=== PATIENT | male | born 1970 | race Caucasian/White ===

== ENCOUNTER 2020-12-14 12:50 | Emergency (ER) | payer BC, SELFPAY ==
[2020-12-14 12:51] VITALS: BMI 27.8
[2020-12-14 13:03] VITALS: PULSE 82; RESP 16; O2SAT 98; BMI 27.8
--- NOTE | 2020-12-14 13:53 | XR_ITS ---
PROCEDURE INFORMATION: Exam: XR Right Ankle Exam date and time: 12/14/2020 1:53 PM Age: 50 years old Clinical indication: Pain; Ankle; Right; Additional info: Right ankle injury TECHNIQUE: Imaging protocol: XR Right ankle. Views: 3 or more views. COMPARISON: No relevant prior studies available. FINDINGS: Bones/joints: No acute fracture or dislocation. Soft tissues: Lateral soft tissue swelling. IMPRESSION: 1. Lateral soft tissue swelling. 2. No acute fracture or dislocation.
--- NOTE | 2020-12-14 14:04 | XR_ITS ---
PROCEDURE INFORMATION: Exam: XR Right Foot Exam date and time: 12/14/2020 2:04 PM Age: 50 years old Clinical indication: Pain; Foot; Right TECHNIQUE: Imaging protocol: XR Right foot. Views: 3 or more views. COMPARISON: No relevant prior studies available. FINDINGS: Bones/joints: Fragmented metal pieces evident within the soft tissues between the 3rd and 4th metatarsal heads. No acute fracture or dislocation. Soft tissues: Normal. IMPRESSION: 1. Fragmented metal pieces evident within the soft tissues between the 3rd and 4th metatarsal heads. 2. No acute fracture or dislocation.
[2020-12-14 14:09] VITALS: BP 167/71; PULSE 71; RESP 18; TEMP 36.7; O2SAT 97; BMI 28.2
--- NOTE | 2020-12-14 14:23 | HMH.EDUTC ---
[facility] [place]: Right ankle sprain Qualifiers: Encounter type: initial encounter Involved ligament of ankle: anterior talofibular ligament Qualified Code(s): S93.491A - Sprain of other ligament of right ankle, initial encounter Disposition: Home, Self-Care Condition on Discharge: Good Instructions: DI for Ankle Sprain Additional Instructions: Rest, ice, elevation and wear walking boot Followup with PCP if not improving Prescriptions: Naproxen [Naproxen 500mg tab] 500 mg PO BID 10 Days #20 tab Transmission Status: Pending to [facility] #[id number] Referrals: Provider,Referral, [Primary Care Provider] - Time of Disposition: 14:31 Medical Decision Making - Sina Inquiry Pt receiving controlled substance: No Vital Signs: 12/14/20 13:03 12/14/20 14:09 Temperature 98.1 F Temperature Source Oral Pulse Rate [Left Radial] 82 71 Respiratory Rate 16 18 Blood Pressure [Right Arm] 167/71 H Blood Pressure Mean [Right Arm] 103 02 Sat by Pulse Oximetry 98 97 Oxygen Delivery Method Room Air Orders (Tests/Meds): ED MEDICATIONS Generic Name Dose Route Start Last Admin Trade Name Freq PRN Reason Stop Dose Admin Ondansetron HCl 4 mg 12/14/20 14:05 Ondansetron 4mg Odt PO 01/13/21 14:04 Q8HP PRN Nausea ORDERS Category Date Time Status Ankle XR -Right minimum 3 Views [XR ankle RT min 3V] Exams 12/14/20 13:53 Taken Stat Foot XR right minimum 3 views [XR foot RT min 3V] Stat Exams 12/14/20 14:04 Taken - Radiology Data #1 Image(s): Ankle, Foot/Toes Image Reviewed: Yes I reviewed the patient's radiology image Preliminary Findings: Normal/NAD, No Fracture Seen [facility] [place] - General Stated complaint: [id number] right ankle pain Time Seen by Provider: 12/14/20 14:24 Mode of Arrival: Family Vehicle Source of Information: Patient Limitations: No Limitations Description of Symptoms (Recalled from Triage Doc. by RN): Patient c/o right ankle pain for the last four days. 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 Patient refuses that this is a workmans comp case. 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 Has pain and swelling in his right ankle. He is bearing weight, but using a cane. Any movement of his foot or ankle is painful. Onset (ago): day(s) (4) Location: right, lower extremity Relieving factors: immobilization Exacerbating factors: movement, other (weightbearing) Treatments prior to arrival: none - Related Data Previous Rx's Medication Instructions Recorded Ondansetron [Zofran 4mg ODT] 4 mg PO Q8HP PRN #10 tab.rapdis 07/24/18 Naproxen [Naproxen 500mg tab] 500 mg PO BID 10 Days #20 tab 12/14/20 Allergies Allergy/AdvReac Type Severity Reaction Status Date / Time No Known Allergies Allergy Verified 06/09/17 13:15 - Worker's Comp Is this a Worker's Comp case?: No Is this an H Worker's Comp?: No Is this a [place] Worker's Comp?: No [facility] History - Hepatitis A Screen Drug use history?: No High risk sexual behaviors?: No History of sexually transmitted infection?: No Currently employed?: No Childcare worker?: No Do you have indoor plumbing?: Yes Do you have electricity?: Yes Attestation statement:: This patient has been screened for Hepatitis A risk factors. I have reviewed the patient's past medical history: Yes Medical History: Denies:: Diabetes Mellitus Type 1, Diabetes Mellitus Type 2, Hypertension Other Surgeries: Yes: No Previous Surgery - Social History Smoking Status: Current every day smoker Tobacco Type: cigarettes # Packs/Day (cigarettes): 1
[2020-12-14 14:46] VITALS: BP 167/71; PULSE 71; RESP 18; TEMP 36.7; O2SAT 97
== END 2020-12-14 14:47 | disposition home or self-care (01) ==
LOC: ER 13:03 → UTC 13:04
PROVIDERS: Emergency Provider Physician Assistant
DX: S93.491A Sprain of other ligament of right ankle, initial encounter (principal); X50.1XXA Overexertion from prolonged static or awkward postures, initial encounter; Y92.89 Other specified places as the place of occurrence of the external cause
CPT/HCPCS: 73610; 73630; 99202; G0463

== ENCOUNTER 2022-01-02 14:53 | Emergency (ER) | payer BC, SELFPAY ==
[2022-01-02 14:54] VITALS: BP 176/94; PULSE 61; RESP 16; TEMP 37.1; O2SAT 98
[2022-01-02 15:25] VITALS: BP 176/94; PULSE 61; RESP 16; TEMP 37.1; O2SAT 98; BMI 28.4
--- NOTE | 2022-01-02 15:42 | HMH.EDUTC ---
[facility] [place] Clinical Impression: Bilateral impacted cerumen Disposition: Home, Self-Care Condition on Discharge: Good Instructions: DI for Cerumen Impaction, Cerumen Impaction Additional Instructions: Drink plenty of fluids. Use the ear drops as directed Follow up with your regular doctor. GO TO THE ER FOR ANY WORSENING SYMPTOMS I put in a referral to an ENT doctor. They have better ways of getting the wax out of your ear. Please call her office and get an appointment. Prescriptions: Carbamide Peroxide [Carbamide Peroxide Otic Drops 15mL Bottle] 5 drp OT BID 4 Days #15 ml Transmission Status: Received by [id number] Referrals: Provider,Johnny, [Primary Care Provider] - Tamica Wang MD [Consulting Physician] - Time of Disposition: 16:59 Medical Decision Making - Medical Records Medical records reviewed: No: I reviewed the patient's medical records. - Sina Inquiry Pt receiving controlled substance: No Vital Signs: 01/02/22 14:54 01/02/22 15:25 01/02/22 17:01 Temperature 98.8 F 98.8 F 98.8 F Temperature Source Oral Oral Pulse Rate 61 Pulse Rate [Right Radial] 61 61 Respiratory Rate 16 16 16 Blood Pressure 176/94 H Blood Pressure [Right Arm] 176/94 H 176/94 H Blood Pressure Mean [Right Arm] 121 121 Blood Pressure Source [Right Arm] Automatic Cuff Blood Pressure Position [Right Arm] Sitting 02 Sat by Pulse Oximetry 98 98 Oxygen Delivery Method Room Air [facility] [place] - General Stated complaint: severe ear pain Time Seen by Provider: 01/02/22 15:42 Mode of Arrival: Ambulatory Source of Information: Patient Limitations: No Limitations Description of Symptoms (Recalled from Triage Doc. by RN): patient comes in with complaints of left ear pressure and pain. 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 symptoms have been ongoing for 2 days HEENT Symptoms (Recalled from RN notes): Yes (L ear) Resp Symptoms (Recalled from RN notes): No Skin Symptoms (Recalled from RN notes): No MS Symptoms (Recalled from RN notes): No Functional Status (Recalled from RN notes): n/a - History of Present Illness Provider Complaint: He states that for the past 1 week he has had decreased hearing in his left ear and left ear discomfort. He has a history of having to have cerumen removed from his ears before and he thinks that is whats needed now. - Related Data Previous Rx's Medication Instructions Recorded Ondansetron [Zofran 4mg ODT] 4 mg PO Q8HP PRN #10 tab.rapdis 07/24/18 naproxen 500 mg tablet 500 mg PO BID 10 Days #20 tab 12/14/20 Carbamide Peroxide [Carbamide 5 drp OT BID 4 Days #15 ml 01/02/22 Peroxide Otic Drops 15mL Bottle] Allergies Allergy/AdvReac Type Severity Reaction Status Date / Time No Known Allergies Allergy Verified 01/02/22 15:27 - Worker's Comp Is this a Worker's Comp case?: No [facility] History - Hepatitis A Screen Attestation statement:: This patient has been screened for Hepatitis A risk factors. I have reviewed the patient's past medical history: Yes Medical History: Denies:: Diabetes Mellitus Type 1, Diabetes Mellitus Type 2, Hypertension Other Surgeries: Yes: No Previous Surgery - Social History Smoking Status: Current every day smoker Tobacco Type: cigarettes # Packs/Day (cigarettes): 1 Alcohol Intake: never Substance Use Type: marijuana (quit 2 years ago), other (denies any hx or current use of IV drugs) Occupational Status: other ROS Obtained: Yes All systems reviewed & no additional complaints - Constitutional Constitutional: Denies chills, Denies fever(s), Denies poor appetite, Denies malaise - ENT Ears, Nose, Mouth, and Throat: Reports as per HPI - Cardiovascular Cardiovascular: Denies chest pain - Respiratory Respiratory: Denies chest congestion, Denies cough Physical Exam - General General appearance: alert, in no apparent distress - Head Head exam: atraumatic, normocephalic, normal inspection
[2022-01-02 17:01] VITALS: BP 176/94; PULSE 61; RESP 16; TEMP 37.1
== END 2022-01-02 17:05 | disposition home or self-care (01) ==
LOC: ER 15:10 → UTC 15:13
PROVIDERS: Emergency Provider Nurse Practitioner Family
DX: H61.23 Impacted cerumen, bilateral (principal)
CPT/HCPCS: 99212; G0463